=== PATIENT | female | born 1990 | race Caucasian/White ===

== ENCOUNTER → 2016-10-19 | Outpatient (CLI) | payer MEDICARE, MEDICAID | LOC: MW.CHNEURO 08:00 | PROVIDERS: ATTEND Psychiatry & Neurology Neuromuscular Medicine | DX: G35 Multiple sclerosis (principal) | CPT/HCPCS: 99205 ==

== ENCOUNTER → 2016-10-27 | Outpatient (CLI) | payer MEDICARE, MEDICAID ==
[~2016-10-27] MED LIST: Gadobutrol 10 mMOL/10 ML SDV IVPUSH STA
--- NOTE | 2016-10-28 08:44 | MR ---
EXAMINATION: MRI of the brain with and without contrast. TECHNIQUE: Multiplanar and multisequence imaging of the brain without and following the administrati on of Gadavist. HISTORY: Multiple sclerosis. FINDINGS: Cerebral hemispheres and the deep nuclei are without hemorrhage, mass, edema, enhancement or atroph y. Again noted is extensive white matter FLAIR signal changes demonstrated. Overall this has a jarvis lar appearance to the previous MRI. A few foci of FLAIR signal are noted within the midbrain, corpus callosum and shy. There are however no areas of enhancement to suggest active demyelination. No ab normal diffusion restriction. No extraaxial collections or hemorrhage. Ventricular system is of normal size and configuration with out hydrocephalus. Brainstem and cerebellum are otherwise without hemorrhage, mass, enhancement or a trophy. Carotid basilar artery flow voids are intact. The venous sinuses are patent. The otomastoid airspa ming are clear. No internal auditory canal or cerebellopontine angle masses or enhancement. Mild muc osal thickening is noted within the right maxillary sinus. Globes, optic nerves, orbital apices, opt ic chiasm, optic tracts, and visual cortices are unremarkable. Pituitary and sella turcica are unremarkable. No meningeal enhancement. No evidence of meningitis. The craniocervical junction is unremarkable. No siderosis or evidence of vascular malformation. The calvarium is intact. IMPRESSION: 1. Extensive white matter signal abnormalities identified within the cerebrum, midbrain, corpus call osum, shy, and cerebellum consistent with a demyelinating process. Overall this appears stable in d istribution and appearance without enhancement to suggest active demyelination.
--- NOTE | 2016-10-28 08:52 | MR ---
EXAMINATION: MRI cervical and thoracic spine without and with contrast. HISTORY: Multiple sclerosis COMPARISON: 08/24/2016. TECHNIQUE: Multiplanar multisequence images obtained through the cervical and thoracic spine before and following the administration of Gadavist. FINDINGS: The cervical spinal alignment is normal. The vertebral body heights and disc spaces appear maintained. There is no significant disc bulge, spinal canal stenosis, or neural foraminal stenosis . Multifocal areas of increased T2 signal are noted throughout the mid brain and cervical spine, sim ilar in appearance to the previous MRI. There is no residual area of enhancement to suggest active d emyelination. The prevertebral soft tissues appear normal. Thoracic spine: Thoracic spinal alignment is normal. The vertebral body heights and disc spaces appe ar well-maintained. There is no abnormal bone marrow signal. No significant spinal canal stenosis, d isc bulge, or neural foraminal stenosis. There are a few areas of increased STIR signal noted within the thoracic spine. Overall the number and distribution appear unchanged from the prior MRI. There is no enhancement to suggest active demyelination. The paravertebral soft tissues appear normal. IMPRESSION: 1. Extensive cervical and moderate thoracic spinal cord areas of increased STIR signal consistent wi th a demyelinating process. Overall the size, number, and distribution appears unchanged from the pr ior MRI. There is however no enhancement to suggest active demyelination.
== END ==
LOC: MW.MRI 09:58
PROVIDERS: ATTEND Psychiatry & Neurology Neuromuscular Medicine
DX: G35 Multiple sclerosis (principal)
CPT/HCPCS: 70553; 72156; 72157; A9585

== ENCOUNTER → 2016-11-01 | Outpatient (CLI) | payer MEDICARE, MEDICAID | LOC: MW.CHNEURO 08:00 | PROVIDERS: ATTEND Psychiatry & Neurology Neuromuscular Medicine | DX: G35 Multiple sclerosis (principal) | CPT/HCPCS: 99214 ==

== ENCOUNTER → 2016-11-15 | Outpatient (CLI) | payer MEDICARE, MEDICAID | LOC: MW.CHNEURO 08:00 | PROVIDERS: ATTEND Psychiatry & Neurology Neuromuscular Medicine | DX: G35 Multiple sclerosis (principal) | CPT/HCPCS: 99214 ==

== ENCOUNTER → 2016-12-20 | Outpatient (CLI) | payer MEDICARE, MEDICAID | LOC: MW.CHNEURO 08:00 | PROVIDERS: ATTEND Psychiatry & Neurology Neuromuscular Medicine | DX: G35 Multiple sclerosis (principal) | CPT/HCPCS: 99214 ==